=== PATIENT | female | born 1985 | race Caucasian/White ===

== ENCOUNTER 2016-10-15 07:57 | Inpatient (IN) ==
[2016-10-15] MEDS ORDERED: Famotidine 20 MG/2 ML VIAL IVP PRN (09:06)
[2016-10-15] MEDS ORDERED: Ondansetron 4 MG/2 ML VIAL IVP PRN (09:06)
[2016-10-15] MEDS ORDERED: Naloxone 0.4 MG/ML INJ IVP PRN (09:06)
[2016-10-15] MEDS ORDERED: miSOPROStol 100 MCG TABLET PO SCH (09:15)
[2016-10-15] MEDS ORDERED: Ringers Solution, Lactated 1,000 ML IVC SCH (09:15)
[2016-10-15 09:17] LABS: Basophils % 0.4 %; Eosinophils # 0.1 K/mcL (0.0-0.6); Eosinophils % 0.7 %; Hematocrit 35.7 % (35.3-44.9); Hemoglobin 11.8 g/dL (11.5-15.4); Immature Granulocytes % 0.8 % (0-4); Lymphocytes # 2.3 K/mcL (0.6-4.6); Lymphocytes % 27.4 %; Mean Corpuscular HGB Conc 33.1 g/dL (31.6-35.5); Mean Corpuscular Hemoglobin 28.2 pg (28.0-33.3); Mean Corpuscular Volume 85.2 fL (83.0-100.0); Mean Platelet Volume 10.9 fL (9.4-12.4); Monocytes # 0.5 K/mcL (0.0-1.3); Monocytes % 5.7 %; Neutrophils # 5.4 K/mcL (1.6-8.9); Platelet Count 192 K/mcL (140-400); Red Blood Count 4.19 M/mcL (3.82-4.97); Red Cell Distribution Width 14.3 % (11.5-14.5)
--- NOTE | 2016-10-15 09:39 | Anesthesia Evaluation PreOp ---
Date of Encounter: 10/15/16 Time of Encounter: 09:05 - Past History Planned Operation: vaginal del, Induction 38wk Cardiac History: Denies any Significant Hx Pulmonary History: Snore (mild according to family, no gasping, does not have to sleep with HOB elevated), Other RN COMMUNITY History: Other (FACTOR 5 LEIDEN MUTATION. had DVT and PE like systems SOB and CP resulted in ER visit post 1st trimester. full workup dx factor 5 being treated with lovenox 80mg BID last dose 2100 10/13/2016. coags sent.) Other Medical History: Thyroid (Thyroid CA s/p thyroidectomy greater than 5 years ago and getting replacement QD.) Anesthesia History: No Prior Anesthetic Complications, Past Anesthesia (2 previous epidurals and GA without complications.) : Yes Alcohol Use: none Drug use: none Medications and Allergies Levothyroxine Sodium [Synthroid] 300 mcg PO SUSA 03/28/16 [History] Levothyroxine [Synthroid] 150 mcg PO MOTUWETHFR 03/28/16 [History] Pnv95/Ferrous Fumarate/FA [ Vitamin Tablet] 1 each PO DAILY 03/28/16 [ History] Enoxaparin [Lovenox] 80 mg SQ Q12HR 10/15/16 [History] Allergies vancomycin Allergy (Verified 02/28/15 11:09) Redness of Skin Anesthesia Results - Labs 10/15/16 09:00 Anesthesia Exam - HEENT Pupil (Motor): Pupils equal Mallampati: III Teeth: Normal Oral Opening: Greater than 3 - RN COMMUNITY LOC: Oriented RN COMMUNITY Motor: Normal RUE, Normal LUE, Normal RLE, Normal LLE, Normal Face RN COMMUNITY Sensory: Normal: RUE, LUE, RLE, LLE, Face - Cardiac Rhythm: Regular Murmur: None - Pulmonary Breath Sounds: bilateral Clear Respiratory Effort: Symmetrical Anesthesia Assess/Plan ASA Score: 2 Modified Cam Scale for Level of Consciousness: Cooperative, oriented, and tranquil Anesthetic Plan: General, Regional Monitoring Plan: Standard Monitors
--- NOTE | 2016-10-15 09:41 | OB/GYN History & Physical ---
Date of Encounter: 10/15/16 Time of Encounter: 09:35 Assessment and Plan (1) with 38 completed weeks gestation Current visit: Yes Status: Acute 1. with 38 completed weeks gestation 30yo female (P0 T2 A0 L2) 38w 0d Previous vaginal delivery x2. OB: Dr. Up complications: 1st trimester bilateral DVT with PE...currently on Lovenox. Plan: CBC, PT, INR. External TOCO. External monitoring. Will monitor BPs. Cytotec 50mg PO. May consider transition to pitocin. May consider cervical ripening with Cytotec. May consider AROM. Patient desires epidural. Patient has no desire at this time for sterilization. 2. Planned induction as above. 3. Anticoagulated 2/2 hx 1st trimester BL DVT with symptoms consistent with PE. Factor V Leiden heterozygous A. Plan: Continue home medication: Lovenox 80mg BID. 4. Hypothyroidism Plan: Continue home medication: Levothyroxine. (2) Elective induction of labor planned Current visit: Yes Status: Acute as above (3) Anticoagulated Current visit: Yes Status: Chronic as above (4) Hypothyroidism Current visit: Yes Status: Chronic as above Qualifiers: Hypothyroidism type: postoperative Qualified Code(s): E89.0 - Postprocedural hypothyroidism History of Present Illness Chief complaint: Induction HPI: Ms. Hoyt is a 30 year old female presents from home to labor and delivery for scheduled induction. (P0 T2 A0 L2) 38w 0d OB: Dr. Up complications: 1st trimester bilateral DVT with PE...currently on Lovenox. Patient feels movement. Patient has no questions, complaints, or concerns at this time. She was induced on her first . She denies any complications besides the DVT and PE in first trimester. Patient states she is feeling intermittent mild contractions at this time. No vaginal bleeding or gush or fluids. No back or pelvic pain at this time. She requests epidural. PMH: Hypothyroid, DVT, PE, Factor V Leiden (Heterozygous A) Meds: Levothyroxine, Lovenox 80mg IM BID. Allergies: Vancomycin Family hx: Maternal grandmother with frequent DVTs, reason unknown. Blood type: A+ GBS: (-) Rubella: (+) HbSAg: (-) @ 03/13/16 T. 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 Ribera Yes medications. Past Med Surg Social Fam HX - Past Medical History Medical history: cancer, DVT, pulmonary embolus, other Psychiatric history: no psych history - Past Surgical History Surgical History: cholecystectomy - Social History Smoking Status: Never smoker Smokeless Tobacco Status: No Alcohol use: none Drug use: none - Family History Mother Living Status: Still Living Hx Family Cardiac Disorders: Yes (hypertension) Obstetrical History - Pregnancies : 3 Para: 2 Term: 2 : 0 Ab's: 0 Livin Medications and Allergies Levothyroxine Sodium [Synthroid] 300 mcg PO SUSA 03/28/16 [History] Levothyroxine [Synthroid] 150 mcg PO MOTUWETHFR 03/28/16 [History] Pnv95/Ferrous Fumarate/FA [ Vitamin Tablet] 1 each PO DAILY 03/28/16 [ History] Enoxaparin [Lovenox] 80 mg SQ Q12HR 10/15/16 [History] Allergies vancomycin Allergy (Verified 02/28/15 11:09) Redness of Skin Review of System OB - Constitutional Constitutional ROS IM: no fatigue, no fever(s), no headache(s), no lethargy - Cardiovascular Cardiovascular: leg edema (equal bilaterally), no chest pain, no diaphoresis, no dyspnea, no lightheadedness, no palpitations - Respiratory Respiratory: no cough, no dyspnea, no hemoptysis, no wheezing, no pain on inspiration - Gastrointestinal Gastrointestinal: nausea, no abdominal pain, no constipation, no diarrhea, no dyspepsia, no hematochezia, no melena - Genitourinary Genitourinary: no difficulty urinating, no vaginal discharge Exam - Constitutional Constitutional: well developed, well nourished, no acute distress, obese - HEENT HEENT: Normocephaly, Mucus Membranes Moist - Neck Neck exam: normal inspection, supple - Lungs Respiratory exam: CTAB - Cardiovascular Cardiovascular exam: RRR, +S1, +S2 - Abdomen Abdomen: Present: bowel sounds normal, gravid, non tender. Absent: guarding noted - Extremities Extremities exam: normal inspection, pedal edema (1+ equal bilaterally, no calf asymmetry.), radial pulses palpable and symetrical Results Result Diagrams: 10/15/16 09:00 All other labs normal.
[2016-10-15 09:54] LABS: Prothrombin Time 11.2 Seconds (9.4-12.1)
[2016-10-15 09:57] LABS: Activated Partial Thrombo Time 26.6 Seconds (26.0-36.0)
[2016-10-15] MEDS ORDERED: Mag Hydrox/Al Hydrox/Simeth 30 ML UDC PO ONE (10:24)
--- NOTE | 2016-10-15 12:29 | OB Labor Progress Note ---
Date of Encounter: 10/15/16 Time of Encounter: 12:27 Labor Progress Note - Subjective Subjective: pt resting comfortable in bed with occasional cramping. - Cervix Cervix: 4/80/-2 - Heart Tones Heart Tones: Very hard to monitor pt. Will apply FSE 135/moderate/+accels/-decels - [place]: Occasional - Interventions Interventions: FSE applied AROM by FSE for small amount clear fluid. - Plan Plan: Continue current management. May start pitocin after 4 hours post cytotec. May have epidural if desires Anticipate
[2016-10-15] MEDS ORDERED: Oxytocin 20 units/ LR 1000 mL 20 UNIT/1,000 ML BAG IVC SCH ×2 (12:45→20:07)
[2016-10-15] MEDS ORDERED: Epidural Premix (fent/bupiv) 110 ML EP ONE (12:52)
--- NOTE | 2016-10-15 13:44 | Anesthesia Procedures ---
Date of Encounter: 10/15/16 Time of Encounter: 13:27 Procedures: Anesthesia - Epidural/Spinal Patient ID/Chart reviewed: Yes Patient examined: Yes OB Eval: Gestational age: 38 OB Eval: : 3 OB Eval: Hx Para: 2 OB Eval: Contractions: Non-stressed pattern Consent Obtained: Yes Supplemental Oxygen: None/Room Air Site Prep: Aseptic Technique, Sterile prep and drape, 0.5% Chlorhexidine/Alcohol Patient position: upright Local Anesthetic: Lidocaine 1% Amount of Local Anesthetic used: 2 Touhy Needle Gauge: 18 Touhy Needle Depth (cm): 8 Catheter Depth at Skin (cm): 12 Test Dose (1.5% Lido + Epi): Volume given (mls): 3 Test Dose Result: Negative Loading Dose: Other: 12from solution Loading Dose Administered: Thru Catheter Infusion Med: 0.125% Bupivacaine w/ 2 mcg/ml Fentanyl Infusion Rate (mls/hr): [address]: Tegaderm, Tape Interspace Used: L3-L4 Loss of Resistance (EVELYN): Yes (saline) Blood: No CSF: No Paresthesia: No Procedure: vss though out, FHR via rn's stable
[2016-10-15] MEDS ORDERED: ROPIVACAINE HCL/PF 0.5% 30 ML VIAL ONE (16:23)
--- NOTE | 2016-10-15 17:47 | OB/GYN Procedure Note ---
Delivery - Delivery Date: 10/15/16 Provider: Christelle Zuniga) Intrapartum events: none Delivery induction: oxytocin, misoprostol Delivery monitor: external FHT, external uterine, internal FHT Anesthesia: epidural Estimated Blood Loss: 300 - Infant (s) A Infant Delivery Date: 10/15/16 Delivery Time: 17:15 Presentation: vertex Position: AMRIT Route of delivery: Gender: Female Viability: Viable Shoulder Dystocia: not encountered - Repair Episiotomy: none Laceration Description: Perineal - 1st Degree - Complications Delivery complications: other (velamentous cord insertion led to cord avulsion and manual removal of placenta by Dr. Up ) Delivery comments: Pt with directed maternal bearing down efforts to of liveborn girl. vertex delivered AMRIT and shoulders easily followed. No nuchal cord or shoulder dystocia encountered. infant placed on maternal abdomen with spontaneous cry. Attempted to deliver placenta with active management with gentle cord traction. Cord avulsion discovered to be velamentous cord insertion. Placenta manually removed by Dr. Up and appears intact on inspection. Perineum with first degree laceration hemostatic and left unrepaired. EBL 300. Delivered by Joyce Mccann DO( PGY-1) and Ewelina MARTINES. Dr. Up present for entire procedure. - Disposition Mom disposition: stable in LDR [place] disposition: stable in LDR
[2016-10-15] MEDS ORDERED: Acetaminophen 325 MG TABLET PO PRN (20:07)
[2016-10-15] MEDS ORDERED: Benzocaine/Menthol 56 GM AEROSOL SPRAY TP PRN (20:07)
[2016-10-15] MEDS ORDERED: Lanolin 28 GM TUBE TP PRN (20:07)
[2016-10-15] MEDS ORDERED: Measles/Mumps/Rubella Vacc 0.5 ML VIAL SQ PRN (20:07)
[2016-10-15] MEDS: Ibuprofen 600 MG TABLET PO PRN (22:33)
[2016-10-15] MEDS: *HR* Enoxaparin 80 MG/0.8 ML SYRINGE SQ SCH (22:35)
[2016-10-15] MEDS: ceFAZolin 2,000 MG in D5% in Water 100 ML IVPB SCH (23:55)
[2016-10-16 05:24] LABS: Basophils % 0.2 %; Eosinophils % 0.4 %; Hemoglobin 10.4 g/dL (11.5-15.4); Immature Granulocytes % 1.2 % (0-4); Lymphocytes # 3.2 K/mcL (0.6-4.6); Lymphocytes % 28.6 %; Mean Corpuscular HGB Conc 33.5 g/dL (31.6-35.5); Mean Corpuscular Hemoglobin 28.8 pg (28.0-33.3); Mean Corpuscular Volume 85.9 fL (83.0-100.0); Mean Platelet Volume 10.2 fL (9.4-12.4); Monocytes # 0.8 K/mcL (0.0-1.3); Monocytes % 6.8 %; Neutrophils # 6.9 K/mcL (1.6-8.9); Platelet Count 153 K/mcL (140-400); Red Blood Count 3.61 M/mcL (3.82-4.97); Red Cell Distribution Width 14.1 % (11.5-14.5); Segmented Neutrophils % 62.8 %
[2016-10-16] MEDS: ceFAZolin 2,000 MG in D5% in Water 100 ML IVPB SCH ×2 (07:51→16:19)
[2016-10-16] MEDS: *HR* Enoxaparin 80 MG/0.8 ML SYRINGE SQ SCH (08:26)
[2016-10-16] MEDS: Ibuprofen 600 MG TABLET PO PRN (08:27)
--- NOTE | 2016-10-16 08:29 | Discharge Summary ---
Date of Encounter: 10/15/16 Time of Encounter: 08:27 - Discharge Diagnosis (1) Vaginal delivery Priority: Primary Status: Acute Comments: Continue routine care discharge home today follow up on 4-6 weeks (2) Breast feeding status of mother Priority: Secondary Status: Acute Comments: Continue support prn (3) Deep vein thrombosis of lower extremity Priority: Secondary Status: Acute Comments: continue Lovenox for 6 weeks Qualifiers: Affected thrombotic vein of extremity: femoral Laterality: left Chronicity: acute Qualified Code(s): I82.412 - Acute embolism and thrombosis of left femoral vein - Discharge Medications Prescriptions: Ibuprofen [Motrin] 600 mg PO Q6HR PRN #60 tablet PRN Reason: Cramping Enoxaparin [Lovenox] 80 mg SQ Q12HCO #42 syringe Home Medications: Levothyroxine Sodium [Synthroid] 300 mcg PO SUSA 03/28/16 [History] Levothyroxine [Synthroid] 150 mcg PO MOTUWETHFR 03/28/16 [History] Pnv95/Ferrous Fumarate/FA [ Vitamin Tablet] 1 each PO DAILY 03/28/16 [ History] Enoxaparin [Lovenox] 80 mg SQ Q12HCO #42 syringe 10/16/16 [Rx] Ibuprofen [Motrin] 600 mg PO Q6HR PRN #60 tablet 10/16/16 [Rx] Lanolin 1 appl TP QID PRN #0 tube 10/16/16 [Rx] Vit/FA 1 each PO DAILY #0 tablet 10/16/16 [Rx] Allergies/Adverse Reactions: Allergies vancomycin Allergy (Verified 02/28/15 11:09) Redness of Skin Data Procedures and tests throughout hospitalization: Laboratory Tests 10/15/16 10/15/16 10/16/16 09:00 09:34 04:55 WBC 8.3 11.0 RBC 4.19 3.61 L Hgb 11.8 10.4 L Hct 35.7 31.0 L MCV 85.2 85.9 MCH 28.2 28.8 MCHC 33.1 33.5 RDW 14.3 14.1 Plt Count 192 153 MPV 10.9 10.2 Immature Gran % 0.8 1.2 Seg Neutrophils % 65.0 62.8 Lymphocytes % 27.4 28.6 Monocytes % 5.7 6.8 Eosinophils % 0.7 0.4 Basophils % 0.4 0.2 Neutrophils # 5.4 6.9 Lymphocytes # 2.3 3.2 Monocytes # 0.5 0.8 Eosinophils # 0.1 0.0 Basophils # 0.0 0.0 PT 11.2 INR 1.0 APTT 26.6 Labs on day of discharge: Labs from last 24 hours 10/16/16 10/15/16 10/15/16 04:55 09:34 09:00 WBC 11.0 8.3 RBC 3.61 L 4.19 Hgb 10.4 L 11.8 Hct 31.0 L 35.7 MCV 85.9 85.2 MCH 28.8 28.2 MCHC 33.5 33.1 RDW 14.1 14.3 Plt Count 153 192 MPV 10.2 10.9 Immature Gran % 1.2 0.8 Seg Neutrophils % 62.8 65.0 Lymphocytes % 28.6 27.4 Monocytes % 6.8 5.7 Eosinophils % 0.4 0.7 Basophils % 0.2 0.4 Neutrophils # 6.9 5.4 Lymphocytes # 3.2 2.3 Monocytes # 0.8 0.5 Eosinophils # 0.0 0.1 Basophils # 0.0 0.0 PT 11.2 INR 1.0 APTT 26.6 Date of admission: 10/15/16 07:57 Primary care physician: Hilda Taylor CNP Consults: 10/15/16 20:07 Consult to Rack Washer [CONS] Routine Comment: Vaginal delivery, consult needed Discharging clinician: Ana Vogel Anticipated date of discharge: 10/16/16 - Patient Status Disposition: Home, Self-Care Condition: Good Functional capacity at discharge: independent ambulation - Discharge Instructions Follow Up With: Krysta Up DO [Partnered Physician] - (November 14, 2016 @ 3:15 pm) Hilda Tyalor CNP [Primary Care Provider] - - Diet and Activity Activity: increase activity as tolerated Diet: regular diet Hospital Course Episiotomy: none Time Attestation: Total time spent providing and/or coordinating discharge services: Exam - Constitutional Vitals: Temp Pulse Resp BP Pulse Ox 97.4 F L 76 14 106/72 97 10/16/16 03:50 10/16/16 03:50 10/16/16 03:50 10/16/16 03:50 10/16/16 03:50
[2016-10-16] MEDS ORDERED: Prenatal Vit/FA 1 EACH TABLET PO SCH (09:00)
[2016-10-16 16:15] VITALS: BP 109/69
== END 2016-10-16 19:09 | disposition home or self-care (01) | DRG 767 ==
LOC: 1NENULAB 07:57 → 1NENUOBS 21:17
PROVIDERS: ADMIT Obstetrics & Gynecology; ATTEND Obstetrics & Gynecology